=== PATIENT | female | born 2000 | race Caucasian/White ===

== ENCOUNTER → 2022-05-05 | Outpatient (CLI) | payer OTHER, SELFPAY ==
[2022-05-05 10:40] LABS: CRP < 2.90 mg/L (0.0-3.0); LDH 158 U/L (84-246)
[2022-05-05 10:51] LABS: Erythrocyte Sedimentation Rate 9 mm/hr (0-30)
[2022-05-06 12:08] LABS: Anti-Centromere B Ab <0.2 AI (0.0-0.9); Anti-Chromatin <0.2 AI (0.0-0.9); Anti-Jo <0.2 AI (0.0-0.9); Anti-Scleroderma-70 AB <0.2 AI (0.0-0.9); RNP Ab 0.2 AI (0.0-0.9); SJOGREN'S Anti-SS-A test < 0.2 AI (0.0-0.9); SJOGREN'S Anti-SS-B test < 0.2 AI (0.0-0.9); Smith Ab <0.2 AI (0.0-0.9)
[2022-05-06 17:29] LABS: Anti-dsDNA Ab <1 IU/mL (0-9)
[2022-05-07 15:07] LABS: Endomysial Antibody IgA Negative (Negative); Immunoglobulin A 76 mg/dL (87-352)
[2022-05-08 08:55] LABS: t-Transglutaminase IgA <2 U/mL (0-3)
[2022-05-13 08:09] LABS: Albumin 4.1 g/dL (2.9-4.4); Alpha-1-Globulins 0.3 g/dL (0.0-0.4); Alpha-2-Globulins 0.8 g/dL (0.4-1.0); Cytoplasmic Ab (C-ANCA) <1:20 titer (Neg:<1:20); Gamma Globulin 1.1 g/dL (0.4-1.8); Immunoglobulin A 78 mg/dL (87-352); Immunoglobulin G 901 mg/dL (586-1602); Immunoglobulin M 144 mg/dL (26-217); PROEL- TOTAL PROTEIN 7.3 g/dL (6.0-8.5)
[2022-05-15 14:12] LABS: Immunoglobulin E 7 IU/mL (6-495); Perinuclear Ab (P-ANCA) <1:20 titer (Neg:<1:20)
== END | disposition home or self-care (01) ==
PROVIDERS: Referring Provider Internal Medicine Gastroenterology; Visit Provider Internal Medicine Gastroenterology
DX: I88.0 Nonspecific mesenteric lymphadenitis (principal)
CPT/HCPCS: 36415; 82784; 82785; 83516; 83615; 84165; 85652; 86140; 86225; 86235; 86255; 86256; 86334

== ENCOUNTER → 2022-05-17 | Outpatient (CLI) | payer OTHER, SELFPAY ==
[2022-05-22 15:48] LABS: Calprotectin, Stool <16 ug/g (0-120)
== END | disposition home or self-care (01) ==
LOC: LABSPEC 07:12
PROVIDERS: Referring Provider Internal Medicine Gastroenterology; Visit Provider Internal Medicine Gastroenterology
DX: I88.0 Nonspecific mesenteric lymphadenitis (principal); K58.9 Irritable bowel syndrome, unspecified
CPT/HCPCS: 83630; 83993

== ENCOUNTER → 2022-12-20 | Outpatient (CLI) | payer OTHER, SELFPAY ==
[2022-12-22 19:07] LABS: Beef <0.10 kU/L (Class 0); Clam <0.10 kU/L (Class 0); Codfish <0.10 kU/L (Class 0); Corn <0.10 kU/L (Class 0); Egg, White <0.10 kU/L (Class 0); Egg, Whole <0.10 kU/L (Class 0); Milk (Cow) <0.10 kU/L (Class 0); Peanut <0.10 kU/L (Class 0); Pork <0.10 kU/L (Class 0); SCALLOP <0.10 kU/L (Class 0); SESAME SEED <0.10 kU/L (Class 0); Shrimp <0.10 kU/L (Class 0); Soybean <0.10 kU/L (Class 0); Walnut, (Food) <0.10 kU/L (Class 0); Wheat <0.10 kU/L (Class 0)
[2022-12-22 21:17] LABS: Chocolate <0.10 kU/L (Class 0)
== END | disposition home or self-care (01) ==
LOC: LAB 08:57
PROVIDERS: Referring Provider Internal Medicine Gastroenterology; Visit Provider Internal Medicine Gastroenterology
DX: D80.2 Selective deficiency of immunoglobulin A [IgA] (principal); I88.0 Nonspecific mesenteric lymphadenitis
CPT/HCPCS: 36415; 86003; 86005

== ENCOUNTER → 2023-04-20 | Outpatient (CLI) | payer OTHER, SELFPAY ==
[2023-04-20 09:28] LABS: Erythrocyte Sedimentation Rate 1 mm/hr (0-30)
[2023-04-20 09:54] LABS: Vitamin B12 405 pg/mL (211-911)
[2023-04-20 10:17] LABS: CRP < 2.90 mg/L (0.0-3.0); Thyroid Stim Hormone (TSH) 1.33 uIU/mL (0.358-3.74)
[2023-04-27 12:09] LABS: HLA B27 Negative (.)
== END | disposition home or self-care (01) ==
LOC: LAB 08:59
PROVIDERS: Referring Provider Internal Medicine Gastroenterology; Visit Provider Internal Medicine Gastroenterology
DX: D80.2 Selective deficiency of immunoglobulin A [IgA] (principal); I88.0 Nonspecific mesenteric lymphadenitis
CPT/HCPCS: 81374; 82607; 82652; 82746; 84443; 85652; 86140

== ENCOUNTER → 2023-04-26 | Outpatient (CLI) | payer OTHER, SELFPAY ==
--- NOTE | 2023-04-26 09:48 | US_ITS ---
EXAM: US abdomen, limited, right upper quadrant. HISTORY: right upper quadrant pain x 1 year TECHNIQUE: US Abdomen RUQ (limited) COMPARISON: None. LIMITATIONS: None. LIVER Size: Normal. Right hepatic lobe measures 14.3 cm in length. Masses: None. Contour: Normal. Echotexture: Normal. Bile ducts: Normal. Portal veins: Normal. Normal hepatopedal flow. Visualized hepatic veins are also patent. GALLBLADDER Size: Normal. Stones/sludge: None. Wall thickness: Normal. Gallbladder wall measures 2.5 mm in thickness. Pericholecystic fluid: None. Sonographic Conklin sign: Negative. EXTRAHEPATIC BILE DUCTS: Normal. Common bile duct measures 2.8 mm in diameter. RIGHT KIDNEY: Normal. Right kidney measures 10.6 cm in length. No hydronephrosis. ASCITES: None. PLEURAL EFFUSIONS: None. OTHER: Visualized pancreas is unremarkable. Scanning of the area of pain shows no solid or cystic mass. US/Abdomen Limited IMPRESSION: Negative right upper quadrant abdominal ultrasound. No gallstones or biliary ductal dilatation. Electronically Signed: Kirby Dennis MD at 23:12 EDT ,
== END | disposition home or self-care (01) ==
PROVIDERS: Referring Provider Internal Medicine Gastroenterology; Visit Provider Internal Medicine Gastroenterology
DX: R10.11 Right upper quadrant pain (principal)
CPT/HCPCS: 76705